=== PATIENT | female | born 1970 | race Hispanic/Latino ===

== ENCOUNTER 2017-06-29 06:54 | Day surgery (SDC) | payer BC ==
[2017-06-29] MEDS ORDERED: XYLOCAINE 1% 20 mL ONE ×2 (07:34→09:16)
--- NOTE | 2017-06-29 07:43 | Anesthesia Day of Surgery ---
Anesthesia Day of Surgery - Day of Surgery Patient Examined: Yes Patient H&P Reviewed: Yes Patient is NPO: Yes
--- NOTE | 2017-06-29 07:43 | Anesthesia Consultation ---
Anesthesia Consult and Med Hx Date of service: 06/29/17 - Airway Anesthetic Teeth Evaluation: Good ROM Head & Neck: Adequate Mental/Hyoid Distance: Adequate Mallampati Class: Class II Intubation Access Assessment: Probably Good - Pulmonary Exam CTA: Yes - Cardiac Exam Cardiac Exam: RRR - Pre-Operative Health Status ASA Pre-Surgery Classification: ASA2 Proposed Anesthetic Plan: General - Pulmonary Hx Smoking: No Hx Sleep Apnea: No - Cardiovascular System Hx Hypertension: Yes (MAR 2017) - Central Nervous System Hx Neuromuscular Disorder: No Hx Psychiatric Problems: No - Gastrointestinal Hx Gastroesophageal Reflux Disease: No - Endocrine Hx Insulin Dependent Diabetes: No - Hematic Hx Anemia: No Hx Sickle Cell Disease: No - Other Systems Hx Alcohol Use: Yes (OCCAS) Hx Substance Use: No Hx Cancer: No Hx Obesity: No
[2017-06-29] MEDS ORDERED: LACTATED RINGERS 1,000 ML IV SCH (07:44)
[2017-06-29] MEDS ORDERED: PEPCID PO NR (07:44)
[2017-06-29] MEDS ORDERED: VERSED IV NR (07:44)
[2017-06-29] MEDS ORDERED: ANCEF/STERILE WATER 2 GM/20 ML IV NR (09:00)
[2017-06-29] MEDS ORDERED: XYLOCAINE MPF 2% ONE (09:16)
[2017-06-29] MEDS ORDERED: DIPRIVAN 10 MG/ML IV ONE (09:16)
[2017-06-29] MEDS ORDERED: SUBLIMAZE ONE ×2 (09:16→10:03)
[2017-06-29] MEDS ORDERED: ZOFRAN ONE (09:16)
[2017-06-29] MEDS ORDERED: MARCAINE 0.25% INFILTRATI ONE ×2 (09:16→09:22)
--- NOTE | 2017-06-29 09:21 | Mammography Report ---
Right breast needle localization procedure. History: Breast cancer. Procedure: The patient has had recent biopsy with placement of a single biopsy clip which apparently migrated medially. After prepping the skin with Betadine, local anesthetic was injected in the skin. Subsequent, 27.5 cm King needles were advanced into the region of interest adjacent to the biopsy clip. Adequate localization was accomplished and 2 hook wires were left in place. The patient tolerated the procedure well clinically and was sent to the OR in satisfactory condition.
[2017-06-29] MEDS ORDERED: WATER FOR IRRIG STERILE IR ONE (09:22)
[2017-06-29] MEDS ORDERED: XYLOCAINE 1% 20 mL INFILTRATI ONE (09:22)
[2017-06-29] MEDS ORDERED: LACTATED RINGERS 1,000 ML ONE (10:08)
--- NOTE | 2017-06-29 10:29 | Operative Report ---
Operative Report Operative Report: Date of Service: June 29, 2017 Preoperative diagnosis: Right breast ADH of the upper outer quadrant Postoperative diagnosis: Same Procedure: Right needle localization excisional biopsy Surgeon: Adilene Billy MD Yard Associate: Sadia Dumont MD Anesthesia: General Findings: Right wires and clip present within radiograph specimen Complications: None EBL: Minimal Disposition: PACU in good condition Procedure in detail: This is a 47-year-old lady with right breast ADH of the upper outer quadrant. She recently underwent right stereotactic biopsy of suspicous microcalcifications at an OSH with final pathology of ADH. Recommendations were to proceed with an excisional biopsy to rule out malignancy. She wished to proceed with the above procedure. Procedure in detail: The patient was taken to radiology for wire placement for localization of area of concern. Patient was then taken to the operating room. Gen. anesthesia was administered. The right breast was prepped and draped in the normal sterile operative fashion. The wires were identified. Timeout was performed. Lateral breast incision was made with a 15 blade knife and dissection taken down to subcutaneous tissues. First began raising of the lateral flap with removal of the wires from the skin, followed by raising of the medial flap, superior flap and inferior flap. The breast area of concern was appropriately removed posteriorly from the the pectoralis muscle with the aid of the bovie cautery. The wires were not encountered. Specimen was marked and then sent to pathology and radiology; radiograph specimen with wires and clip present. Breast cavity was irrigated and hemostasis was obtained. The breast cavity was anesthetized with 1% lidocaine mixed with quarter percent Marcaine. The subcutaneous tissues were approximated and closed using interrupted 3-0 Vicryl followed by a running 4-0 Monocryl and skin affix. The patient tolerated surgery very well and she was awaken from anesthesia without any complication and transported to PACU in good condition.
--- NOTE | 2017-06-29 10:31 | Short Stay Summary ---
Short Stay Documentation Date of service: 06/29/17 - History H&P: obtained from office - Allergies and Medications Current Medications: Allergies acetaminophen [From Tylenol] Allergy (Verified 06/23/17 17:34) N/V codeine Allergy (Verified 06/23/17 17:34) N/V Home Medications Medication Instructions Recorded Confirmed Last Taken Type Lisinopril [Prinivil] 5 mg PO DAILY 06/23/17 06/29/17 06/29/17 History Ibuprofen 800 mg PO Q8HR PRN #30 tablet 06/29/17 Unknown Rx Active Medications Cefazolin Sodium (Ancef/Sterile Water 2 Gm/20 Ml) 2 gm IV PREOP NR Stop: 06/29/17 12:00 Lactated Ringer's (Lactated Ringers) 1,000 mls @ 75 mls/hr IV DIRECT LINDSEY Midazolam HCl (Versed) 2 mg IV PREOP NR Stop: 06/29/17 23:59 - Brief post op/procedure progress note Date of procedure: 06/29/17 Pre-op diagnosis: Right breast ADH Post-op diagnosis: same Procedure: Right breast needle localization excisional biopsy Anesthesia: GETA Findings: Wires and clip present within radiograph specimen Surgeon: JOSE JUAREZ Risk Management Manager: VLADISLAV JEROME Estimated blood loss: minimal Pathology: list (right breast excisonal biopsy) Specimen disposition: to lab Condition: stable - Disposition Condition at discharge: Good Disposition: DC-01 TO HOME OR SELFCARE Short Stay Discharge Plan Activity: other (no heavy lifting) Diet: regular Wound: other (keep incision clean and dry and may shower in 24 hours; no baths, pools or lakes; do not rub or scrub incision) Follow up with: JEMAL BOLES MD [Primary Care Provider] - 7 Days JOSE JUAREZ MD [Staff Physician] - 7 Days Prescriptions: Ibuprofen 800 mg PO Q8HR PRN #30 tablet PRN Reason: Pain
--- NOTE | 2017-06-29 12:09 | Mammography Report ---
Specimen radiograph. A single specimen radiograph confirms the biopsy clip in both hook wires within the specimen. Also, several microcalcifications are seen near the biopsy clip.
[2017-06-29] MEDS ORDERED: ZOFRAN IM ONE (12:23)
[2017-06-29] MEDS ORDERED: MOTRIN PO PRN (12:24)
[2017-06-29] MEDS ORDERED: ZOFRAN IV PRN (12:53)
[2017-06-29 13:26] VITALS: BP 121/66
--- NOTE | 2017-06-29 13:30 | Post Anesthesia Evaluation ---
- Post Anesthesia Evaluation Patient Participated: Yes Airway Patent: Yes Stable Respiratory Function: Yes Nausea/Vomiting: No Temp > 96.8F: Yes Pain Manageable: Yes Adequeate Hydration: Yes Anesthesia Complications: No Block Receding Appropriately: Not Applicable Patient on Ventilator: No
== END 2017-06-29 13:18 | disposition home or self-care (01) ==
LOC: OR 06:54
PROVIDERS: ATTEND Surgery
DX: N60.91 Unspecified benign mammary dysplasia of right breast (principal); I10 Essential (primary) hypertension; Z88.5 Allergy status to narcotic agent
CPT/HCPCS: 19125; 19281; 19282; 76098; 88307; 88341; 88342; J0690; J2250; J2405; J2704; J3010; J7120